=== PATIENT | female | born 1960 | race Caucasian/White ===

== ENCOUNTER → 2017-05-03 | Outpatient (CLI) | payer BC ==
--- NOTE | 2017-05-03 16:11 | KCIC ---
PQRS Compliance Statement: One or more of the following individualized dose reduction techniques were utilized for this examination: 1. Automated exposure control 2. Adjustment of the mA and/or kV according to patient size 3. Use of iterative reconstruction technique CT CHEST WO CONTRAST Clinical Indication: Lung nodule follow-up. Comparison: CT chest without contrast May 01, 2016 and April 30, 2015. TECHNIQUE: Helical CT imaging of the chest is performed without IV contrast. FINDINGS: No adenopathy in the chest. Limited evaluation of the [place] without IV contrast. A vessels normal caliber. Cardiac size normal, no pericardial effusion. There is no pleural abnormality. Central airways are patent. 4 mm nodule in the right middle lobe is unchanged compared to 2016, image 112 of series 2. Minimal atelectasis or scarring in the medial right lower lobe. No other lung nodule is identified. Visualized upper abdomen unremarkable. Stable bone island of the T5 vertebral body. IMPRESSION: Interval stability of 4 mm nodule in the right middle lobe. Electronically signed by: Alireza Rosario MD (05/03/2017 4:07 PM) [id number]
== END | disposition home or self-care (01) ==
LOC: KCIC CT 15:22
PROVIDERS: ATTEND Family Medicine
DX: R91.1 Solitary pulmonary nodule (principal)
CPT/HCPCS: 71250